=== PATIENT | male | born 1990 | race African-American/Black ===

== ENCOUNTER 2020-04-30 16:08 | Emergency (ER) | payer SELFPAY ==
[~2020-04-30] VITALS: Ht 185.4 cm; Wt 104.0 kg
[2020-04-30] MEDS ORDERED: KETOROLAC 60MG/2ML VIAL IM ONE (16:30)
[2020-04-30] MEDS ORDERED: HYDROCODONE/ACETAMINOPHEN 5/325MG TABLET PO ONE (16:30)
[2020-04-30 17:30] VITALS: BP 146/99
== END 2020-04-30 19:09 | disposition home or self-care (01) ==
LOC: ER 16:08
DX: S86.911A Strain of unspecified muscle(s) and tendon(s) at lower leg level, right leg, initial encounter (principal); V43.52XA Car driver injured in collision with other type car in traffic accident, initial encounter; Y93.89 Activity, other specified; Y92.410 Unspecified street and highway as the place of occurrence of the external cause
CPT/HCPCS: 72170; 73552; 93005; 96372; 99284; J1885; Z7610